=== PATIENT | female | born 1995 | race Hispanic/Latino ===

== ENCOUNTER 2017-05-18 12:02 | Outpatient (CLI) | payer OTHER ==
--- NOTE | 2017-05-19 07:31 | ULT ---
THYROID ULTRASOUND: 05/18/17 Ultrasonography of the thyroid gland was performed for evaluation of goiter. The right lobe measures 4.5 x 1.6 x 1.5 cm. The left lobe measures 4.1 x 1.2 x 1.2 cm. No thyroid mas s was seen. No cysts are present. No surrounding adenopathy was shown. IMPRESSION: Mild to moderate thyroid enlargement without any focal findings. POS: HOME
== END 2017-05-18 12:03 | disposition home or self-care (01) ==
LOC: BURULT 12:02
PROVIDERS: ATTEND Family Medicine
DX: E04.9 Nontoxic goiter, unspecified (principal)
CPT/HCPCS: 76536

== ENCOUNTER 2017-12-21 09:03 | Outpatient (CLI) | payer BC ==
--- NOTE | 2017-12-21 23:06 | ULT ---
ABDOMINAL ULTRASOUND: 12/21/17 Ultrasonography of the abdomen was performed for evaluation of right upper quadrant pain. The liver is slightly large measuring 15.8 cm in length, however, no focal masses or dilated ducts we re seen. Overall, the liver is not seen exceptionally well. The pancreas was completely obscured by g as. The spleen is normal in size. The gallbladder was completely filled with stones and is contracted around them. The common bile duct was borderline large at 6 mm in caliber. The kidneys both appear n ormal with the right measuring 11.3 cm in length and the left measuring 10.5 cm. The aorta does not a ppear to have been imaged. An incidental note is portal venous flow was sampled which was towards the liver as expected. IMPRESSION: 1. Very slight hepatic enlargement without any internal focal findings. 2. Small contracted gallbladder with gallstones. Borderline large width of common bile duct (6 m m). POS: HOME
== END 2017-12-21 09:04 | disposition home or self-care (01) ==
LOC: BURULT 09:03
PROVIDERS: ATTEND Physician Assistant
DX: R10.11 Right upper quadrant pain (principal); R16.0 Hepatomegaly, not elsewhere classified; K80.20 Calculus of gallbladder without cholecystitis without obstruction
CPT/HCPCS: 76700